=== PATIENT | male | born 1985 | race Caucasian/White ===

== ENCOUNTER 2018-04-30 05:09 | Inpatient (IN) ==
[2018-04-30] MEDS ORDERED: Clindamycin 900 mg/NS Premix 900 MG/50 ML PIGGYBACK IV.SIG ONE (07:06)
[2018-04-30] MEDS ORDERED: Sod Chloride 0.9% Inj 1,000 ML IV.SIG ONE (07:06)
[2018-04-30] MEDS ORDERED: Ketorolac Inj 30 MG/ML (IVP) Vial IV.PUSH ONE (07:20)
[2018-04-30 07:37] LABS: Baso % (Auto) 0.3 % (0.0-2.0); Eos # (Auto) 0.1 th/mm3 (0.0-0.4); Hematocrit 41.7 % (39.0-51.0); Hemoglobin 14.2 gm/dL (13.0-17.0); Lymph % (Auto) 8.4 % (9.0-44.0); Mean Corpuscular HGB Conc 34.1 % (32.0-36.0); Mean Corpuscular Hemoglobin 31.4 pg (27.0-34.0); Mean Platelet Volume 9.4 fL (7.0-11.0); Mono # (Auto) 0.9 th/mm3 (0.0-0.9); Neut # (Auto) 9.6 th/mm3 (1.8-7.7); Neut % (Auto) 82.3 % (16.0-70.0); Platelet Count 133 th/mm3 (150-450); Red Blood Count 4.54 mil/mm3 (4.50-5.90); Red Cell Distribution Width 13.6 % (11.6-17.2); White Blood Count 11.7 th/mm3 (4.0-11.0)
[2018-04-30 07:51] LABS: Anion Gap 7 meq/L (5-15); Blood Urea Nitrogen 13 mg/dL (7-18); Carbon Dioxide 28.2 meq/L (21.0-32.0); Chloride 107 meq/L (98-107); Glomerular Filtration Rate Greater Than 89 mL/min (>89); Glucose,Random 114 mg/dL (74-106); Potassium 3.2 meq/L (3.5-5.1); Sodium 142 meq/L (136-145)
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
[2018-04-30] MEDS ORDERED: Bisacodyl 10 MG Supp RECTAL PRN (10:03)
[2018-04-30] MEDS ORDERED: Acetaminophen 325 MG Tablet PO PRN (10:03)
[2018-04-30] MEDS ORDERED: Morphine Inj 4 MG/ML Vial IV.PUSH PRN ×2 (10:05)
[2018-04-30] MEDS ORDERED: Naloxone Inj 0.4 MG/ML Vial IV.PUSH PRN ×2 (10:05→10:20)
[2018-04-30] MEDS ORDERED: Ketorolac Inj 30 MG/ML (IVP) Vial IV.PUSH PRN (10:20)
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
--- NOTE | 2018-04-30 11:01 | CT ---
EXAM DATE: 04/30/2018 10:52 AM EDT AGE/SEX: 33 years / Male INDICATIONS: Chin pain and swelling today. CLINICAL DATA: This is the patient's initial encounter. Patient reports that signs and symptoms have been present for 1 day and indicates a pain score of 7/10. MEDICAL/SURGICAL HISTORY: None. None. RADIATION DOSE: 51.23 CTDI (mGy) COMPARISON: No prior exams available for comparison. TECHNIQUE: Contiguous images in the axial and coronal planes were obtained using helical multirow de tector technique with 93 ml Omnipaque 350 (iohexol) nonionic water-soluble contrast as a single exam dose. Using automated exposure control and adjustment of the mA and/or kV according to patient size , radiation dose was kept as low as reasonably achievable to obtain optimal diagnostic quality images . DICOM format image data is available electronically for review and comparison. FINDINGS: Orbits: The orbital and infraorbital osseous structures are intact. The retroconal structures have a normal configuration. No radiopaque foreign bodies are seen. Nasal Bone: The nasal bone and maxillary spine are intact. Zygomatic Arches: Symmetric without evidence of fracture. Sinuses: The maxillary, ethmoid and frontal sinuses are intact. No air-fluid levels seen. Nasal Cavity: The nasal septum is intact and midline. The lacrimal ducts are intact. Soft Tissues: No evidence of radiopaque foreign body. There is diffuse subcutaneous edema overlying the level of the mandible, worse on the left. Within the superficial soft tissues there is a small 1. 1 cm rim-enhancing low density fluid collection identified just to the left of the apex of the mandib le concerning for an evolving small soft tissue abscess. There is a less well-defined area identified just superior to this level. The adjacent dental structures appear intact without evidence of source of abscess. Intracranial: No intracranial air seen. Cribriform Plate: Grossly intact. Post Contrast: No abnormal areas of enhancement seen. CONCLUSION: 1. Subcutaneous edema overlying the left and to lesser extent right superficial soft tissues at the level of the mandible with a small 1.2 cm area of abscess just to the left of the angle of the mandib le with a less well-defined area of low attenuation seen just superior to this which may represent an evolving abscess. The adjacent dental structures appear unremarkable. No evidence of foreign body. Electronically signed by: Geni Murillo MD 04/30/2018 10:59 AM EDT
[2018-04-30] MEDS: Potassium Chlor 10 mEq Premix 10 MEQ/100 ML PIGGYBACK IV.SIG SCH ×3 (11:30→17:29)
[2018-04-30 13:14] LABS: Amphetamine Screen,Urine Neg (Neg); Barbiturate Screen,Urine Neg (Neg); Cannabinoid Screen,Urine Neg (Neg); Cocaine Screen,Urine Pos (Neg)
[2018-04-30] MEDS: Ketorolac Inj 30 MG/ML (IVP) Vial IV.PUSH PRN ×2 (13:19→20:03)
[2018-04-30 13:23] LABS: Opiate Screen,Urine Neg (Neg)
[2018-04-30] MEDS: Clindamycin 600 mg/NS Premix 600 MG/50 ML PIGGYBACK IV.SIG SCH ×2 (14:57→20:02)
[2018-04-30] MEDS ORDERED: Potassium Chlor 10 mEq Premix 10 MEQ/100 ML PIGGYBACK IV.SIG ONE (17:15)
[2018-04-30] MEDS: Senna/Docusate Sodium 8.6/50 MG Tablet PO SCH (20:02)
[2018-05-01] MEDS: Clindamycin 600 mg/NS Premix 600 MG/50 ML PIGGYBACK IV.SIG SCH ×4 (00:24→22:29)
[2018-05-01] MEDS: Ketorolac Inj 30 MG/ML (IVP) Vial IV.PUSH PRN ×4 (03:07→22:33)
[2018-05-01 07:22] LABS: Baso % (Auto) 0.2 % (0.0-2.0); Eos # (Auto) 0.3 th/mm3 (0.0-0.4); Eos % (Auto) 3.2 % (0.0-4.0); Hematocrit 40.3 % (39.0-51.0); Hemoglobin 13.5 gm/dL (13.0-17.0); Lymph # (Auto) 1.1 th/mm3 (1.0-4.8); Lymph % (Auto) 12.8 % (9.0-44.0); Mean Corpuscular HGB Conc 33.5 % (32.0-36.0); Mean Corpuscular Hemoglobin 30.8 pg (27.0-34.0); Mean Corpuscular Volume 91.9 fL (80.0-100.0); Mono # (Auto) 0.7 th/mm3 (0.0-0.9); Mono % (Auto) 7.5 % (0.0-8.0); Neut # (Auto) 6.8 th/mm3 (1.8-7.7); Neut % (Auto) 76.3 % (16.0-70.0); Platelet Count 118 th/mm3 (150-450); Red Blood Count 4.38 mil/mm3 (4.50-5.90); Red Cell Distribution Width 13.5 % (11.6-17.2)
[2018-05-01 07:54] LABS: Anion Gap 6 meq/L (5-15); Blood Urea Nitrogen 13 mg/dL (7-18); Calcium 8.3 mg/dL (8.5-10.1); Chloride 110 meq/L (98-107); Glomerular Filtration Rate Greater Than 89 mL/min (>89); Glucose,Random 98 mg/dL (74-106); Potassium 3.9 meq/L (3.5-5.1); Sodium 143 meq/L (136-145)
[2018-05-01] MEDS: Senna/Docusate Sodium 8.6/50 MG Tablet PO SCH ×2 (09:30→22:32)
[2018-05-01] MEDS: Morphine Inj 4 MG/ML Vial IV.PUSH PRN ×3 (11:35→18:19)
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
[2018-05-02] MEDS: Clindamycin 600 mg/NS Premix 600 MG/50 ML PIGGYBACK IV.SIG SCH ×2 (08:05→08:09)
[2018-05-02] MEDS: Ketorolac Inj 30 MG/ML (IVP) Vial IV.PUSH PRN ×2 (08:43→21:32)
[2018-05-02] MEDS: Senna/Docusate Sodium 8.6/50 MG Tablet PO SCH ×2 (08:44→21:39)
[2018-05-02] MEDS ORDERED: Vancomycin Consult Pharmacy 1 EACH OTHER SCH (09:15)
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
--- NOTE | 2018-05-02 11:45 | MB ---
cc: Jacoby Pedersen MD DATE: 05/02/2018 CHIEF COMPLAINT: Lower face and lip swelling. HISTORY OF PRESENT ILLNESS: This is a 33-year-old male who awoke early in the morning with upper lip swelling and chin swelling, progressively worsened until the pain became acute. He subsequently went into the emergency room. He was noted to have some significant cellulitis and possible abscess to his chin and lip area. The patient reports never having anything like this before. He does not know exactly what happened; he just woke with it. PAST MEDICAL HISTORY, PAST SURGICAL HISTORY, SOCIAL HISTORY AND MEDICATIONS: Reviewed per the chart. REVIEW OF SYSTEMS: As noted above. PHYSICAL EXAMINATION: HEAD, EYES, EARS, NOSE AND THROAT: The patient with significant edema of the lower lip, extending onto the chin. There is a significant eschar along the left side of the chin consistent with likely a spider bite. Significant fluctuance in this area. After removing the eschar, a significant amount of purulence was easily drained, relieving some of the pressure for the patient. NECK: Exam reveals no palpable lymphadenopathy. ASSESSMENT AND PLAN: The patient with a cellulitis and a small abscess likely secondary to a spider bite or insect bite. Recommend covering for MRSA, community-acquired, as those are the most likely a bacteria contained in spider bites. Otherwise, continue wound dressings to the area as well as mupirocin ointment or bacitracin ointment twice daily. IV antibiotics per Infectious Disease. Thank you for this consultation. Jacoby Pedersen MD ATT/SB , 11:34 AM , 11:40 AM
[2018-05-02] MEDS: Vancomycin Inj 1,250 MG in Sodium Chlor 0.9% Inj 250 ML IV.SIG SCH (13:32)
[2018-05-02] MEDS: Morphine Inj 4 MG/ML Vial IV.PUSH PRN ×2 (14:10→20:09)
[2018-05-02] MEDS ORDERED: Bupivacaine/Epinephrine 0.5% Inj 50 ML Vial NERV BLOCK ONE (15:00)
--- NOTE | 2018-05-02 15:04 | MB ---
cc: Grazyna Murillo MD DATE: 05/02/2018 CHIEF COMPLAINT: Swelling of the lip and chin. HISTORY OF PRESENT ILLNESS: The patient is a 33-year-old male who has been in the emergency room area in observation for the last approximately 48 hours. The patient notes that several days ago he woke up with swelling in his lip and chin area. The patient noted the cellulitis and was started on intravenous clindamycin. A CT scan was performed and that showed the presence of an abscess in the area of the chin with another one starting nearby. The patient notes pain and swelling in the area, which has been unresolved despite intravenous antibiotics and local wound care and consultation was requested regarding evaluation and treatment of the area. PAST MEDICAL HISTORY: The patient notes he had a MRSA infection in his left foot, which has been resolved. He denies high blood pressure, diabetes, heart disease, kidney disease, liver disease, or diseases of infectious etiology. SOCIAL HISTORY: The patient admits to smoking cocaine approximately 1 month ago, but denies intravenous drug use. The patient also admits that he is homeless. PAST SURGICAL HISTORY: As above. MEDICATIONS: The patient is on no medications. REVIEW OF SYSTEMS: Otherwise negative, except as noted above. PHYSICAL EXAMINATION: GENERAL: The patient is lying in bed. He is relatively comfortable, although he is noting the discomfort in his chin. HEENT/NECK: His extraocular muscles are intact. His pupils are equal, round and reactive to light. His mouth is clear. Neck is supple without masses. He does have swelling of the chin area with 2 areas which appear to be spontaneously draining. The area is swollen and red. There is also some swelling of the lower lip. There appears to be some submandibular glandular swelling, although there is no redness in the area. The entire redness and swelling appears to be localized to the chin measuring approximately 3 x 3.5 cm in greatest dimension. LUNGS: Clear. HEART: Regular rate and rhythm. EXTREMITIES: Within normal limits. LABORATORY DATA: Review of the CT scan. The CT scan does show subcutaneous edema overlying the areas of the mandible in the area of the chin. The 2 areas are relatively confluent. There is no dental involvement. IMPRESSION: The patient has a large abscess of his chin. PLAN: The area will be infiltrated with anesthetic. The area will be drained and packed and a culture will be obtained. The patient does understand and accept the risks and complications of the surgery as well as the fact that he will have open wounds on his chin and possibly lip. MD YESI Disla/MARLO , 02:42 PM , 02:54 PM
[2018-05-03] MEDS: Vancomycin Inj 1,250 MG in Sodium Chlor 0.9% Inj 250 ML IV.SIG SCH ×2 (00:21→17:35)
[2018-05-03] MEDS: Morphine Inj 4 MG/ML Vial IV.PUSH PRN ×3 (06:29→17:57)
[2018-05-03] MEDS: Senna/Docusate Sodium 8.6/50 MG Tablet PO SCH ×2 (10:15→21:35)
[2018-05-03] MEDS ORDERED: Lidocaine PF 1% Inj 5 ML Syringe INFILTRATN ONE (12:00)
[2018-05-03] MEDS ORDERED: Ketorolac Inj 30 MG/ML (IVP) Vial IV.PUSH ONE (12:00)
[2018-05-03] MEDS ORDERED: fentaNYL Citrate Inj 100 MCG/2 ML Ampul ONE (12:37)
[2018-05-03] MEDS ORDERED: Famotidine PF Inj 20 MG/2 ML Vial ONE (12:37)
[2018-05-03] MEDS ORDERED: Ketamine Inj 50 MG/5 ML Syringe IV.PUSH ONE (13:30)
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
[2018-05-03] MEDS ORDERED: Bupivacaine PF 0.25% Inj 30 ML Vial ONE (13:47)
--- NOTE | 2018-05-03 14:25 | P.BOP ---
- Preoperative Diagnosis (1) Abscess of chin (2) Abscess of lip - Postoperative Diagnosis (1) Abscess of chin (2) Abscess of lip Date of procedure: 05/03/18 Procedure: Incision and drainage of abscess of lip and chin. Anesthesia: MAC Surgeon: Grazyna Murillo MD Estimated blood loss (mL): 5 Pathology: none sent Condition: stable Disposition: PACU
[2018-05-03] MEDS ORDERED: Morphine Sulfate Inj 8 MG/ML Vial ONE (14:47)
--- NOTE | 2018-05-03 15:21 | MP ---
cc: Grazyna Murillo MD DATE OF OPERATION: 05/03/2018 PREOPERATIVE DIAGNOSES: 1. Abscess of lower lip. 2. Abscess of chin. POSTOPERATIVE DIAGNOSES: 1. Abscess of lower lip. 2. Abscess of chin. PROCEDURES PERFORMED: 1. Incision and drainage of abscess of lower lip. 2. Incision and drainage of abscess of chin. ANESTHESIA: General with MAC. SURGEON: Grazyna Murillo MD. INDICATIONS: A 33-year-old male with abscess of chin and lip. FINDINGS: There were 2 pockets containing the pus. At the completion of the procedure, the abscess cavities were completely drained. Loculations were broken up, and the wounds were packed with 1/4-inch iodoform packing. OPERATIVE TIME: Approximately 30 minutes. DESCRIPTION OF PROCEDURE: The patient was seen preoperatively. He was then taken to the operating room and placed in the supine position. His identity was checked against the arm band and the consent form, side and site confirmed. Timeout called prior to beginning the procedure. The area of the chin was prepped with Betadine and draped in the usual sterile fashion. Bupivacaine 0.25% plain was then injected as a field block around the operative area in tissue, which did not appear to be cellulitic or affected by the infection. A #15 blade was then used to make an incision over the chin abscess below the resting skin tension line. Incision was made down through the skin, down into the subcutaneous tissue. Using the spread technique, the abscess cavity was entered. Loculations were broken up. The pus was removed using suction. There was a tunnel to the second area of abscess formation. There was also a second site where the purulence had penetrated the skin. A separate incision was made in this area elliptically. The 15 blade was used to make elliptical incision and the necrotic tissue was removed, and the purulence was removed with suction. Loculations were then broken up with a clamp gently. Provocative maneuvers were made in order to remove any additional pus. The wounds were then copiously irrigated with saline. Once the effluent was clear, both wounds were packed separately with 1/4-inch iodoform packing. The area was then cleansed of Betadine and blood, and a dry dressing was applied using Telfa, 4 x 4s, and Medipore tape. The patient was then taken from the operating room to the recovery room in satisfactory condition, having tolerated the procedure well. MD YESI Disla/ramin , 02:33 PM , 02:40 PM
[2018-05-03] MEDS: Ketorolac Inj 30 MG/ML (IVP) Vial IV.PUSH PRN (21:35)
[2018-05-04] MEDS: Vancomycin Inj 1,250 MG in Sodium Chlor 0.9% Inj 250 ML IV.SIG SCH ×3 (05:22→16:34)
[2018-05-04] MEDS: Ketorolac Inj 30 MG/ML (IVP) Vial IV.PUSH PRN ×2 (05:28→11:53)
[2018-05-04] MEDS: Morphine Inj 4 MG/ML Vial IV.PUSH PRN ×2 (08:31→13:12)
[2018-05-04] MEDS: Senna/Docusate Sodium 8.6/50 MG Tablet PO SCH ×2 (08:34→22:48)
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
[2018-05-04] MEDS ORDERED: Acetaminophen 325 MG Tablet PO PRN (15:23)
[2018-05-04] MEDS: Sulfamethoxazole/Trimethoprim 400/80 MG Tablet PO SCH (22:46)
[2018-05-05] MEDS ORDERED: Pharmacy Ordered Lab Info OTHER ONE (03:45)
[2018-05-05] MEDS: Vancomycin Inj 1,250 MG in Sodium Chlor 0.9% Inj 250 ML IV.SIG SCH (03:55)
[2018-05-05] MEDS: Morphine Inj 4 MG/ML Vial IV.PUSH PRN (06:04)
[2018-05-05 06:13] LABS: Glomerular Filtration Rate Greater Than 89 mL/min (>89)
[2018-05-05] MEDS: Senna/Docusate Sodium 8.6/50 MG Tablet PO SCH ×2 (10:01→23:05)
[2018-05-05] MEDS: Sulfamethoxazole/Trimethoprim 400/80 MG Tablet PO SCH ×2 (10:01→23:03)
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
[2018-05-05] MEDS ORDERED: Vancomycin Inj 1,000 MG in Sodium Chlor 0.9% Inj 250 ML IV.SIG SCH (12:00)
[2018-05-06] MEDS ORDERED: Pharmacy Ordered Lab Info OTHER ONE (03:45)
--- NOTE | 2018-05-06 09:07 | P.CONPSY ---
Provisional Diagnosis Admission Date: May 02, 2018 11:17 [place] I.: Cocaine abuse, cluster B personality disorder History of Present Illness Service: Psychiatry Consult date: 05/06/18 Requesting Physician: Emir Yap Reason for Consult: Assessment Primary Care Provider: No Primary Care Physician History of Present Illness: Patient a 33-year-old white male initially admitted to the medical/surgical service for treatment of cellulitis and abscess of the facial area. Urine toxicology on admission was positive for cocaine. This is been treated he has been surgically cleared. It appears she may have made some suicidal type statements to his mother who lives out of state who then contacted medical staff requesting my assessment. Review of EMR shows multiple past visits to this hospital. He was seen in consultation in 2015 at that time he was felt to have a possible bipolar disorder but also cocaine abuse and marijuana abuse. He was followed by [facility] in the community. Patient seen today in his room with nurse present throughout session he is alert oriented young man from [facility] with multiple tattoos small dressing noted over the left side of his chin. He is alert oriented calm cooperative but somewhat irritable and demanding and manipulative. He denies any suicidality and homicidality voices or visions. He states is a history of bipolar disorder but has not been treated for at least 5 years and that is through [facility]. When sharing with him the urinary toxicology report of this episode and in 2015 he minimizes says uses cocaine very infrequently. He states she is homeless and [facility]. He states he has talked with his mother was planning on getting a plane ticket to have him come back home with her in [place]. There is also an entitlement with him feeling he should stay here in the hospital until all those arrangements are met because his wound is still open somewhat and there are of the precautions taken with his wound. Attempted to discuss with him the fact that his medical surgical team will talk some about discharge plans wound care isolation care and precautions she needs to take. He is quite resistant to acknowledging that seeming to wish to stay here until his mother can take him home. At this time I see no specific [place] I psychiatric diagnosis. There is the cocaine abuse that is chronic. There is the personality disorder in the cluster B area. Thus at this time patient does not meet criteria for further psychiatric care or hospitalizations or medications. It is okay by psych for discharge when he is medically clear and stable, no Rx by me, which suggests possible further substance abuse counseling and programming either locally or if he winds up going with his mother in [place] thanks for consult I will sign off at this time Review of Systems All other systems reviewed negative except as stated [facility] - History History Provided By: Patient - Medical History Medical History: Medical History (Last Reviewed 05/02/18 @ 11:08 by Yuliya Zhao Electronic Engineering Technician, DISPENSARY CLERK) Patient denies medical problems - Surgical History Surgical History: Surgical History (Last Updated 04/30/18 @ 10:22 by Emir Yap MD) H/O chest tube placement - Family History Family History: Family History (Last Updated 04/30/18 @ 10:17 by Emir Yap MD) Other Family history non-contributory - Tobacco History Second Hand Smoke Exposure: No Tobacco Use In Past 30 Days: No Smoking Status: Current every day smoker Tobacco Type: Cigarettes - Alcohol History How Often Do You Have a Drink Containing Alcohol: Never - Substance Use History Substance History: No History of Abuse - Travel History Recent Travel in the [facility] Within the Last 8 Weeks: No Recent Travel Out of the Country Within the Last 8 Weeks: No - Immunization History Tetanus Immunization: >5 Years Hx Influenza Vaccine This Season: No Medications and Allergies Active Medications: Active Medications Acetaminophen (Tylenol) 650 mg PO Q4H PRN PRN Reason: Temp > 100.4 Last Admin: 04/30/18 21:43 Dose: 650 mg Acetaminophen (Tylenol) 650 mg PO Q6HR PRN PRN Reason: PAIN SCALE 1 TO 2 Hydrocodone Bitart/Acetaminophen ([place] 5/325) 1 tab PO Q4H PRN PRN Reason: PAIN SCALE 3 TO 5 Hydrocodone Bitart/Acetaminophen ([place] 10/325) 1 tab PO Q4H PRN PRN Reason: PAIN SCALE 6 TO 10 Last Admin: 05/06/18 05:29 Dose: 1 tab Al Hydroxide/Mg Hydroxide (Milk Of Magnesia Liq) 30 ml PO Q12H PRN PRN Reason: Mild Constipation Bisacodyl (Dulcolax Supp) 10 mg RECTAL DAILY PRN PRN Reason: SEVERE CONSITIPATION Potassium Chloride/Sodium Chloride (Ns + Kcl 20 Meq Inj) 1,000 mls @ 90 mls/hr IV.CONT .Q11H7M EUNICE Last Admin: 05/06/18 05:15 Dose: Not Given Lactulose (Lactulose Liq) 30 ml PO DAILY PRN PRN Reason: SEVERE CONSITIPATION Mupirocin (Bactroban 2% Oint) 1 applicatio TOPICAL BID [facility] Last Admin: 05/05/18 23:03 Dose: Not Given Naloxone HCl (Narcan Inj) 0.4 mg IV.PUSH UNSCH PRN PRN Reason: SEE LABEL COMMENTS Ondansetron HCl (Zofran Inj) 4 mg IV.PUSH Q6H PRN PRN Reason: NAUSEA OR VOMITING Senna/Docusate Sodium (Shauna-Colace) 1 tab PO BID [facility] Last Admin: 05/05/18 23:05 Dose: Not Given Sennosides (Senokot) 17.2 mg PO Q12H PRN PRN Reason: Moderate Constipation Sodium Chloride (Ns Flush) 2 ml IV.FLUSH BID [facility] Last Admin: 05/05/18 23:04 Dose: 2 ml Sodium Chloride (Ns Flush) 2 ml IV.FLUSH PRN PRN PRN Reason: FLUSH AFTER USING IV ACCESS Last Admin: 05/02/18 08:45 Dose: 2 ml Trimethoprim/Sulfamethoxazole (Bactrim) 1 tab PO Q12HR [facility] Last Admin: 05/05/18 23:03 Dose: 1 tab Allergies Allergy/AdvReac Type Severity Reaction Status Date / Time No Known Allergies Allergy Uncoded 04/05/15 09:46 Home Medications Medication Instructions Recorded Confirmed Type No Known Home Medications 05/01/18 05/01/18 History Exam Vital signs: Vital Signs 05/05/18 12:00 05/05/18 16:00 05/05/18 20:00 Temperature 97.7 F 97.0 F L 97.3 F L Pulse Rate 71 71 63 Respiratory Rate 17 17 22 Blood Pressure 110/56 L 128/64 113/59 L Pulse Oximetry 99 98 98 05/06/18 00:00 05/06/18 04:00 Temperature 97.4 F L 97.2 F L Pulse Rate 59 L 57 L Respiratory Rate 17 17 Blood Pressure 111/71 131/73 Pulse Oximetry 98 97 Intake & Output 05/05/18 05/06/18 05/06/18 18:59 06:59 18:59 Intake Total 1316.5 / 1316.5 1600 / 1600 Balance 1316.5 / 1316.5 1600 / 1600 Weight 77.2 kg Intake: IV 512.5 / 512.5 Vancomycin Inj 1,000 MG In NS 250 / 250 Inj 250 ML @ 250 mls/hr IV.SIG Q8H EUNICE Rx#:[id number] Vancomycin Inj 1,250 MG In NS 262.5 / 262.5 Inj 250 ML @ 250 mls/hr IV.SIG Q12H EUNICE Rx#:[id number] Oral 804 / 804 1600 / 1600 Other: # Voids 4 3 # Bowel Movements 2 Narrative: Patient sitting quietly in his room he is in no acute distress he is in no respiratory distress no complaints of chest pain, no complaints of abdominal pain, patient moving all 4 extremities without difficulty. Small dressing noted on the left side of his chin Mental Status Examination Appearance: Appropriate Consciousness: Alert Orientation: x4 Motor Activity: Normal gait Speech: Unremarkable Fund of Knowledge: Adequate Attention and Concentration: Adequate Memory: Unremarkable Mood: Other (Euthymic to irritable and angry he is also quite entitled) Affect: Other (Good range and intensity) Thought Process & Associations: Intact Thought Content: Appropriate, Other (Entitled and manipulative) Hallucination Type: None Delusion Type: None Suicidal Ideation: No Suicidal Plan: No Suicidal Intention: No Homicidal Ideation: No Homicidal Plan: No Homicidal Intention: No Insight: Poor Judgment: Poor Assessment and Plan - Assessment (1) Cocaine abuse Code(s): F14.10 - Cocaine abuse, uncomplicated Status: Acute (2) Cluster B personality disorder Code(s): F60.9 - Personality disorder, unspecified Status: Acute - Plan Plan: Estimated LOS: [] days At this time I see no indication for further psychiatric assessment. It is okay by psych for discharge when medically clear and stable, no Rx by me, but possibly refer patient to an AA if she remains local refer patient to substance abuse assessment counseling in his home town with his mother if he travels that location thanks for consult will sign off on this patient Justification for Continued Inpatient Stay: To be determined by MedSurg staff Discharge Planning: To be determined by MedSur status Request Healthcare Surrogate/Guardian Advocate?: No
[2018-05-06] MEDS: Sulfamethoxazole/Trimethoprim 400/80 MG Tablet PO SCH (09:16)
[2018-05-06] MEDS: Senna/Docusate Sodium 8.6/50 MG Tablet PO SCH (09:17)
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
== END 2018-05-06 10:29 | disposition left against medical advice (07) ==
LOC: NEDA 05:09 → NEPE 05:09 → NEPFCDU 09:00 → N07 05-03 12:24
PROVIDERS: ADMIT Internal Medicine; ATTEND Internal Medicine